=== PATIENT | female | born 1955 | race Caucasian/White ===

== ENCOUNTER 2017-07-08 19:25 | Emergency (ER) | payer BC ==
[~2017-07-08] VITALS: Ht 170.2 cm; Wt 72.8 kg
[~2017-07-08 19:25] MED LIST: ADVIL200 MG PO; DIAZEPAM5 MG PO; METHOCARBAMOL500 MG; PERCOCET 5/31 TABLET PO; ULTRAM50 MG PO
[2017-07-08 21:43] VITALS: BP 161/88
== END 2017-07-08 21:46 | disposition home or self-care (01) ==
LOC: EME 19:25
DX: H10.212 Acute toxic conjunctivitis, left eye (principal); T49.5X5A Adverse effect of ophthalmological drugs and preparations, initial encounter
CPT/HCPCS: 99281; 99284